=== PATIENT | male | born 1935 | race Caucasian/White ===

== ENCOUNTER 2016-11-24 06:05 | Day surgery (SDC) | payer OTHER ==
[~2016-11-24] VITALS: Ht 170.2 cm; Wt 92.9 kg
[~2016-11-24 06:05] MED LIST: AMLODIPINE BESY10 MG PO; ASPIRIN EC81 MG; DURAGESIC25 MCG/HR TOP; LEVITRA20 MG; LISINOPRIL10 MG PO; LISINOPRIL40 MG PO; LOVASTATIN40 MG PO; MECLIZINE HCL25 M1 PO; OMEPRAZOLE20 M1; TRAZODONE HCL50 MG PO; UROCIT-K 10; VICODIN EQUIVAL1 TAB PO
--- NOTE | 2016-11-24 07:59 | Operative Report ---
Operative Report Date of Surgery: A 11/24/16 Preoperate Diagnosis: history of colon polyps Postoperative Diagnosis: extensive sigmoid diverticulosis Surgeon: Hubert Thompson MD C2 Tactical Analysis Technician Surgeon: none Procedure Performed: Colonoscopy Anesthesia: Total intravenous anesthesia Indications: 80-year-old male who has colonoscopy 2015 mg have a tubular adenoma of the right colon. Asymptomatic. FINDINGS: Normal appearing cecum, descending, transverse colon, descending colon. Patient to have extensive sigmoid diverticulosis. Rectal wall normal. Surgical Technique: Patient was brought to the operating room. Patient was placed in the left lateral decubitus position. Patient was administered TIVA by anesthesia. Once anesthesia had taken effect digital rectal examination was performed. No masses or stenosis was appreciated. This was then followed by the passage of a fiberoptic video flexible Olympus colonoscope. The scope was then passed with difficulty and eventually negotiated out of the sigmoid. Patient was noted have extensive sigmoid diverticulosis. The scope was advanced and eventually the cecum was visualized. The cecum was identified by anatomical landmarks and anterior abdominal wall ballottement. On withdrawing the scope the aforementioned findings were noted. The scope was then retroflexed and a good view of the rectal wall obtained. The scope was then completely withdrawn. Patient tolerated procedure well. Patient was transferred to the recovery room in stable condition. There were no intraoperative or anesthetic complications.
--- NOTE | 2016-11-24 08:01 | Provider's Discharge Care Plan ---
Problem, Goal, Plan Problem List 1. Status post colonoscopy Goals: Screening Instructions: Follow up as needed, Take meds as directed, high-fiber diet
--- NOTE | 2016-11-24 08:01 | Provider's Discharge Care Plan ---
Problem, Goal, Plan Problem List 1. Status post colonoscopy Goals: Screening Instructions: Follow up as needed, Take meds as directed, high-fiber diet
[2016-11-24 08:56] VITALS: BP 124/54
== END 2016-11-24 09:12 | disposition home or self-care (01) ==
LOC: OR SRH 06:05 → SCU SRH 06:05 → OR SRH 07:30
PROVIDERS: Specialist
PROC: 0DJD8ZZ Inspection of Lower Intestinal Tract, Via Natural or Artificial Opening Endoscopic (ICD-10-PCS; principal; 2016-11-24 07:30)
DX: Z12.11 Encounter for screening for malignant neoplasm of colon (principal); K57.30 Diverticulosis of large intestine without perforation or abscess without bleeding; Z86.010 Personal history of colon polyps; Z80.0 Family history of malignant neoplasm of digestive organs; J44.9 Chronic obstructive pulmonary disease, unspecified; Z72.0 Tobacco use; I10 Essential (primary) hypertension
CPT/HCPCS: 29229; 29240; 50004; 60001; 83526; 90047; 94060; 95059